=== PATIENT | male | born 1960 | race Caucasian/White ===

== ENCOUNTER 2021-01-17 13:37 | Outpatient (CLI) | payer BC, SELFPAY ==
--- NOTE | ~2021-01-17 | XR_ITS ---
EXAMINATION: XR elbow RT min 3V DATE: 01/17/2021 13:55 INDICATION: Right elbow pain. TECHNIQUE: 4 views of right elbow were obtained. COMPARISON: None. FINDINGS: Bone alignment is normal. No fracture. Joint spaces are well maintained. There is no elbow joint effusion. IMPRESSION: 1. Normal right elbow. Reviewed, dictated and finalized at location A. IMPRESSION: 1. Normal right elbow.
--- NOTE | ~2021-01-17 | XR_ITS ---
EXAMINATION: XR knee RT min 4V DATE: 01/17/2021 13:55 INDICATION: Right knee pain. TECHNIQUE: 4 views of right knee were obtained. COMPARISON: Right knee radiographs 10/22/2015 FINDINGS: Bone alignment is normal. No fracture. There is moderate osteoarthritis of lateral and andres llofemoral compartments and mild osteoarthritis of medial compartment. No knee joint effusion. IMPRESSION: 1. Moderate right knee osteoarthritis. Reviewed, dictated and finalized at location A.
== END 2021-01-17 13:38 | disposition home or self-care (01) ==
LOC: ANHBWCIMG 13:38
PROVIDERS: Visit Provider Orthopaedic Surgery
DX: M25.561 Pain in right knee (principal); M79.671 Pain in right foot; M17.11 Unilateral primary osteoarthritis, right knee
CPT/HCPCS: 73080; 73564

== ENCOUNTER 2021-06-02 09:07 | Emergency (ER) | payer BC, SELFPAY ==
[2021-06-02 09:13] VITALS: BP 152/84; PULSE 80; RESP 16; TEMP 37.7; O2SAT 99
--- NOTE | 2021-06-02 09:45 | ED.URI ---
HPI - URI/Sore Throat General Chief Complaint: Upper Respiratory Infection Stated Complaint: Sore Throat Source: patient and RN notes reviewed Mode of arrival: ambulatory History of Present Illness HPI Narrative: This is a 61-year-old male who presented to urgent care with complaints of a sore throat, fever, aches, swollen throat, diarrhea cough with yellowish sputum, diarrhea that started on Sunday and worsened on Sunday. Patient be a complete a Covid test is waiting results. Patient noted that he took Tylenol and ibuprofen at home for his symptoms. The patient denies SOB, CP, palpitation, extremity numbness, lightheadedness, dizziness, constipation, and chills. Related Data Allergies Allergy/AdvReac Type Severity Reaction Status Date / Time No Known Drug Allergies Allergy Unknown Unknown Verified 01/19/21 16:25 Review of Systems Review of Systems: A 14 organ system Review of Systems was performed and pertinent positives included in the HPI, otherwise remaining ROS is negative. [facility] Past Medical History Medical History Cubital tunnel syndrome on right Degenerative arthritis of right knee Lateral epicondylitis of right elbow Right elbow pain Right knee pain Family History Family History Other Cerebrovascular accident Hypertension Social History Social History Smoking status: Never smoker Alcohol intake: current Exam Narrative: GENERAL: This is a well-nourished, well-developed patient, in no apparent distress. HEAD: normocephalic, atraumatic. EYES: PERRL. Sclera clear/white. Vision is grossly intact. EARS: External ears normal, auditory canals clear and without drainage, TMs normal without perforation. Hearing grossly intact. NOSE: External nose normal with no obvious nasal discharge, nares without redness, no rhinorrhea. THROAT: Mucous membranes moist, posterior pharynx edema with erythematous bilateral enlarged tonsils. NECK: Neck supple, non-tender without lymphadenopathy, masses or thyromegaly. CARDIOVASCULAR: Regular rate and rhythm without murmurs, gallops, or rubs. RESPIRATORY: Clear to auscultation. Breath sounds equal bilaterally. No wheezes, rales, or rhonchi. GASTROINTESTINAL: Abdomen soft, non-tender, nondistended. Bowel sounds are active. No hepato-splenomegaly, or palpable masses. No guarding. SKIN: warm, intact with no suspicious lesions or rash, good texture and turgor. NEURO: awake, alert, and oriented to person, place and time. There were no obvious focal neurologic abnormalities. Steady gait EXTREMITIES: Normal range of motion. No edema. No calf tenderness. Negative Homans sign bilaterally. BACK: Nontender without deformity or crepitance. No flank tenderness. Course Course Emergency Course: Patient will discharge home with amoxicillin, patient treated office symptoms and assessment along Level of Care: Express Care Visit Vital Signs Vital signs: Vital Signs Temperature 99.9 F H 06/02/21 09:13 Pulse Rate 80 06/02/21 09:13 Respiratory Rate 16 06/02/21 09:13 Blood Pressure 152/84 H 06/02/21 09:13 Pulse Oximetry 99 06/02/21 09:13 Temperature 99.9 F H 06/02/21 09:13 Pulse Rate 80 06/02/21 09:13 Respiratory Rate 16 06/02/21 09:13 Blood Pressure 152/84 H 06/02/21 09:13 Pulse Oximetry 99 06/02/21 09:13 MDM - URI/Sore Throat Differential Diagnosis Differential diagnosis: Likely upper respiratory infection, sinusitis, viral infection, bronchitis and pharyngitis Lab Data Attestation: I reviewed the patient's lab results. Labs: Influenza A Screen Negative Reference Range: Negative Influenza B Screen Negative Reference Range: Negative Strep Screen Pres
== END 2021-06-02 10:15 | disposition home or self-care (01) ==
PROVIDERS: Emergency Provider Nurse Practitioner Family
DX: J02.9 Acute pharyngitis, unspecified (principal); M17.11 Unilateral primary osteoarthritis, right knee
CPT/HCPCS: 87081; 87804; 87880; 99213; G0463

== ENCOUNTER 2023-09-10 08:37 | Outpatient (CLI) | payer BC, SELFPAY ==
--- NOTE | ~2023-09-10 | XR_ITS ---
Right Shoulder Technique: AP and axillary views were obtained. Clinical History: Pain Findings: No fracture or dislocation is seen. Osseous alignment is anatomic. The glenohumeral and acr omioclavicular joint spaces are preserved. Soft tissues are unremarkable. Impression: Unremarkable right shoulder radiographs. Reviewed, dictated and finalized at [facility]. Impression: Unremarkable right shoulder radiographs.
== END 2023-09-10 08:38 | disposition home or self-care (01) ==
LOC: CHSIMG 08:40
PROVIDERS: Visit Provider Orthopaedic Surgery
DX: M25.511 Pain in right shoulder (principal)
CPT/HCPCS: 73030

== ENCOUNTER 2024-09-29 12:17 | Outpatient (CLI) | payer BC, SELFPAY ==
--- NOTE | ~2024-09-29 | XR_ITS ---
Right Knee Technique: AP, lateral, and sunrise views were obtained. Clinical History: Pain Findings: No fracture or dislocation is seen. Osseous alignment is anatomic. Moderate degenerative ch ramírez of the lateral compartment present. There is mild degenerative change of the medial and patellof emoral compartments.. Soft tissues are unremarkable. No joint effusion is seen. Impression: Degenerative changes, as above, worst in the lateral compartment. Reviewed, dictated and finalized at location M. Impression: Degenerative changes, as above, worst in the lateral compartment.
== END 2024-09-29 12:18 | disposition home or self-care (01) ==
PROVIDERS: Visit Provider Orthopaedic Surgery
DX: M25.561 Pain in right knee (principal)
CPT/HCPCS: 73564